=== PATIENT | male | born 1955 | race Caucasian/White ===

== ENCOUNTER 2018-06-29 18:45 | Emergency (ER) | payer SELFPAY ==
[~2018-06-29] VITALS: Ht 157.5 cm; Wt 72.1 kg
[2018-06-29 19:16] VITALS: BP 218/143
--- NOTE | 2018-06-29 19:20 | NUR ---
PT AMBULATORY TO ER LOBBY W/ STEADY GAIT IN STABLE CONDITION.
--- NOTE | 2018-06-29 20:02 | NUR ---
PATIENT BIB SELF FOR UPPER RIGHT MOLAR PAIN X 3 DAYS. STATES HE WAS SUPPOSE TO HAVE SOME SORT OF DENTAL PROCEDURE DONE BUT THEY WOULD NOT DO IT BECAUSE HIS BP WAS ELEVATED. STATES HE HAS NEVER TAKEN MEDICATION FOR HTN ALTHOUGH IT HAS BEEN PRESCRIBED TO HIM. STATES THAT HE HAS AN APPOINTMENT FOR July WITH THE DENTIST BUT CANT WAIT THAT LONG BECASUE THE PAIN IS TOO BAD. DENIES ANY HEADACHE OR CHANGE IN VISION. LAUREN ECHOLS MADE AWARE OF PT HIGH BP.
--- NOTE | 2018-06-29 20:20 | NUR ---
LAUREN ECHOLS AT BEDSIDE.
[2018-06-29] MEDS ORDERED: cloNIDine 0.1 MG TAB PO ONE (20:35)
[2018-06-29] MEDS ORDERED: KETOROLAC 30 MG/ML VIAL IM ONE (20:35)
--- NOTE | 2018-06-29 21:21 | NUR ---
LAUREN ECHOLS STATED HIS BP HAS IMPROVED ENOUGH. CURRENTLY AT 185/88.
[2018-06-29 21:36] VITALS: BP 185/88
--- NOTE | 2018-06-29 21:36 | NUR ---
Patient discharged with v/s stable. Written and verbal after care instructions given and explained. Patient alert, oriented and verbalized understanding of instructions. Ambulatory with steady gait. All questions addressed prior to discharge. ID band removed. Patient advised to follow up with PMD. Rx of IBUPROFEN, NORVASC, NORCO given. Patient educated on indication of medication including possible reaction and side effects. Opportunity to ask questions provided and answered.
== END 2018-06-29 21:36 | disposition home or self-care (01) ==
LOC: MED 18:45
DX: K08.89 Other specified disorders of teeth and supporting structures (principal); I10 Essential (primary) hypertension
CPT/HCPCS: 96372; 99283; J1885